=== PATIENT | female | born 1945 | race Caucasian/White ===

== ENCOUNTER → 2018-11-02 | Outpatient (CLI) | payer MEDICARE, OTHER ==
--- NOTE | 2018-11-02 14:58 | KCIC ---
MR of the left knee HISTORY: Left knee pain since end of September, pain medially. Swelling. TECHNIQUE: Routine multiplanar sequences are obtained. FINDINGS: There is a degenerative tear of the medial meniscus. No evidence of a lateral meniscal tear. Anterior and posterior cruciate ligaments are intact. Mild medial collateral ligament sprain. Iliotibial band unremarkable. Fibular collateral ligament, biceps femoris tendon and popliteus tendon are intact. The extensor mechanism is intact. Small joint effusion. Severe chondromalacia of the patella with subjacent cystic change/edema. Moderate femoral trochlear chondromalacia. Severe chondromalacia at the medial joint compartment. Mild chondromalacia at the lateral joint. No acute fracture or aggressive bone destruction. Small García's cyst. IMPRESSION: 1. Medial meniscal tear. 2. Primary osteoporosis. Electronically signed by: Geovani Pickard MD (11/02/2018 2:55 PM) [facility]
== END | disposition home or self-care (01) ==
LOC: KCIC MRI 13:44
PROVIDERS: ATTEND Nurse Practitioner Family
DX: S83.412A Sprain of medial collateral ligament of left knee, initial encounter (principal); S83.242A Other tear of medial meniscus, current injury, left knee, initial encounter; M25.462 Effusion, left knee; M22.42 Chondromalacia patellae, left knee; M71.22 Synovial cyst of popliteal space [Baker], left knee; X58.XXXA Exposure to other specified factors, initial encounter; Y93.89 Activity, other specified; Y92.89 Other specified places as the place of occurrence of the external cause; Y99.8 Other external cause status
CPT/HCPCS: 73721

== ENCOUNTER 2020-02-08 11:18 | Emergency (ER) | payer MEDICARE, OTHER ==
[~2020-02-08] VITALS: Ht 162.6 cm; Wt 76.0 kg
[2020-02-08] MEDS ORDERED: FAMOTIDINE 20 MG/2 ML VIAL IVP ONE (11:30)
[2020-02-08] MEDS ORDERED: ONDANSETRON PF 4 MG/2 ML VIAL. IVP ONE (11:30)
[2020-02-08] MEDS ORDERED: IV NORMAL SALINE 1000ML BAG 1,000 ML IV ONE (11:30)
--- NOTE | 2020-02-08 11:40 | PHYS DOC ---
General Adult EDM: Chief Complaint: SYNCOPE HPI: HPI: Patient is a 74-year-old female brought to the ED by EMS due to syncope. Patient was at a outdoor in hot weather and she started feeling lightheaded, nauseous, weak. She briefly "passed out" and has been vomiting intermittently. Ate a small male this morning and no liquids except for coffee. Patient has no known drug allergies. Patient takes fish oil, co-Q10, vitamin B12, vitamin E, and an antidepressant was recently changed 2 days ago. He is unaware of the new antidepressants name. Patient denies fever, chills, cough or shortness of breath. Patient denies any COVID contacts. Review of Systems: Review of Systems: Constitutional: Denies fever or chills Eyes: Denies redness or eye pain HENT: Denies nasal congestion or sore throat Respiratory: Denies cough or shortness of breath Cardiovascular: Denies chest pain or palpitations GI: Denies abdominal pain, endorses nausea and vomiting : Denies dysuria or hematuria Musculoskeletal: Denies back pain or joint pain Integument: Denies rash or skin lesions Neurologic: Denies headache, focal weakness or sensory changes Complete systems were reviewed and found to be within normal limits, except as documented in this note. Current Medications: Current Medications Medications (Trade) Dose Ordered Sig/Katia Start Time Stop Time Status Last Admin Dose Admin Famotidine (Pepcid Vial) 20 mg 1X ONCE 02/08/20 11:30 02/08/20 11:31 DC Ondansetron HCl (Zofran) 4 mg 1X ONCE 02/08/20 11:30 02/08/20 11:31 DC Sodium Chloride 1,000 ml @ 1,000 mls/hr 1X ONCE 02/08/20 11:30 02/08/20 12:29 Allergies: Allergies: Allergies Coded Allergies Type Severity Reaction Last Updated Verified Sulfa (Sulfonamide Antibiotics) Allergy Intermediate 11/24/15 No Physical Exam: PE: Constitutional: Well developed, well nourished, no acute distress, non-toxic appearance HENT: Normocephalic, atraumatic Eyes: PERRL, EOMI, conjunctiva normal, no discharge Neck: Normal range of motion, no tenderness, supple Lungs & Thorax: Bilateral breath sounds clear to auscultation, no wheezing Abdomen: Soft, no tenderness Skin: Warm, dry, no erythema, no rash Back: No tenderness, no CVA tenderness Extremities: No tenderness, ROM intact, no edema Neurologic: Alert and oriented X 3, normal motor function, normal sensory function, no focal deficits noted Psychologic: Affect normal, judgment normal EKG: EK02/08/2020 at 1127 hours heart rate is 73 bpm, normal sinus rhythm, QRS 90 ms, QT/QTc 422/469 ms, 2 PVCs, incomplete right bundle branch block Radiology/Procedures: Radiology/Procedures: PROCEDURE: PORTABLE CHEST 1V PORTABLE CHEST 1V 02/08/2020 11:21 AM INDICATION: Syncope COMPARISON: None available TECHNIQUE: Portable frontal view of the chest is provided. FINDINGS: The cardiomediastinal silhouette is within normal limits. Lungs are clear. There are no significant pleural effusions. There is no pulmonary vascular congestion. No pneumothorax. No suspicious osseous abnormality. IMPRESSION: There is no acute cardiopulmonary process. Electronically signed by: Amanda Farr MD (02/08/2020 11:48 AM) [facility] Course & Med Decision Making: Course & Med Decision Making Pertinent Labs and Imaging studies reviewed. (See chart for details) Patient is a 74-year-old female presenting to the ED by EMS for a syncopal episode she had at a outdoor . Patient reports no fall or head trauma which is concurrent with physical exam. Patient described not eating or drinking much this morning and states that it was very hot outside. Patient was most likely dehydrated which led to her syncopal episode. Laboratory hematology is unremarkable. Chest x-ray shows no acute process. Patient was given ondansetron and famotidine for nausea. Patient stable for discharge with outpatient follow-up with PCP. Discussed findings and plan with patient, who acknowledges understanding and agreement. Dragon Disclaimer: Dragon Disclaimer: This electronic medical record was generated, in whole or in part, using a voice recognition dictation system. Departure Departure Impression: Primary Impression: Syncope Qualified Codes: R55 - Syncope and collapse Disposition: 01 HOME, SELF-CARE Condition: IMPROVED Referrals: GABRIELLA TRAMMELL APRN (PCP) Patient Instructions: Dehydration, Adult, [id number], Syncope, [id number] Justicifation of Admission Dx: Justifications for Admission: Justification of Admission Dx: N/A TENZIN GILBERT DO Feb 08, 2020 11:39
[2020-02-08 11:48] LABS: BASO # 0.1 x10^3/uL (0.0-0.2); BASO % 1 % (0-3); EOS # 0.1 x10^3/uL (0.0-0.7); EOS % 1 % (0-3); HEMATOCRIT 37.7 % (36.0-47.0); HEMOGLOBIN 12.9 g/dL (12.0-15.5); LYMPH # 3.2 x10^3/uL (1.0-4.8); LYMPH % 37 % (24-48); MEAN CORPUSCULAR HEMOGLOBIN 31 pg (25-35); MEAN CORPUSCULAR HGB CONC 34 g/dL (31-37); MEAN CORPUSCULAR VOLUME 89 fL (79-100); MONO # 0.7 x10^3/uL (0.0-1.1); MONO % 8 % (0-9); NEUT # 4.8 x10^3/uL (1.8-7.7); NEUT % 54 % (31-73); PLATELET COUNT 215 x10^3/uL (140-400); RED BLOOD COUNT 4.22 x10^6/uL (3.50-5.40); RED CELL DISTRIBUTION WIDTH 12.8 % (11.5-14.5); WHITE BLOOD COUNT 8.8 x10^3/uL (4.0-11.0)
--- NOTE | 2020-02-08 11:51 | RAD ---
PORTABLE CHEST 1V 02/08/2020 11:21 AM INDICATION: Syncope COMPARISON: None available TECHNIQUE: Portable frontal view of the chest is provided. FINDINGS: The cardiomediastinal silhouette is within normal limits. Lungs are clear. There are no significant pleural effusions. There is no pulmonary vascular congestion. No pneumothorax. No suspicious osseous abnormality. IMPRESSION: There is no acute cardiopulmonary process. Electronically signed by: Amanda Farr MD (02/08/2020 11:48 AM) [facility]
[2020-02-08 12:18] LABS: CALCIUM 9.3 mg/dL (8.5-10.1); CREATININE 1.1 mg/dL (0.6-1.0); GFR 48.8; POTASSIUM 3.9 mmol/L (3.5-5.1)
[2020-02-08 12:23] LABS: ALBUMIN/GLOBULIN RATIO 1.1 (1.0-1.7); MAGNESIUM 2.2 mg/dL (1.8-2.4); TOTAL BILIRUBIN 0.5 mg/dL (0.2-1.0); TOTAL PROTEIN 7.5 g/dL (6.4-8.2)
--- NOTE | 2020-02-08 12:28 | RAD ---
CT HEAD WO CONTRAST History: Reason: syncope / Spl. Instructions: / History: Comparison: None. Technique: Noncontrast CT imaging was performed of the head. Exposure: One or more of the following individualized dose reduction techniques were utilized for this examination: 1. Automated exposure control 2. Adjustment of the mA and/or kV according to patient size 3. Use of iterative reconstruction technique. Findings: No intracranial hemorrhage. No mass effect. No hydrocephalus. Mild brain parenchymal volume loss. Mild foci of decreased attenuation within the hemispheric white matter, within normal range for age. Imaged orbits are unremarkable. Imaged paranasal sinuses and mastoid air cells are clear. No acute calvarial fracture. Impression: 1. No acute intracranial abnormality. Electronically signed by: Keith Quinonez DO (02/08/2020 12:25 PM) [facility]
[2020-02-08 14:02] LABS: BILIRUBIN,URINE NEGATIVE (NEG); CLARITY,URINE CLEAR; COLOR,URINE YELLOW; NITRITE,URINE NEGATIVE (NEG); PROTEIN,URINE NEGATIVE (NEG-TRACE); UROBILINOGEN,URINE 0.2 mg/dL (0.2 mg/dL)
[2020-02-08 14:13] LABS: BACTERIA,URINE 0 /HPF (0-FEW); RBC,URINE 0 /HPF (0-2); WBC,URINE 0 /HPF (0-4)
[2020-02-08 14:14] LABS: HYALINE CASTS, URINE MODERATE /HPF; SQUAMOUS EPITHELIAL CELL,UR FEW /LPF
[2020-02-08 14:47] VITALS: BP 115/54
== END 2020-02-08 15:19 | disposition home or self-care (01) ==
LOC: ER 11:18
DX: R55 Syncope and collapse (principal); R42 Dizziness and giddiness; R11.2 Nausea with vomiting, unspecified; Z88.2 Allergy status to sulfonamides
CPT/HCPCS: 36415; 70450; 71045; 80053; 81001; 82553; 83735; 84484; 85025; 96361; 96374; 96375; 99285; J2405; J3490; J7030

== ENCOUNTER → 2021-09-21 | Outpatient (CLI) | payer MEDICARE, OTHER ==
--- NOTE | 2021-09-22 08:10 | KCIC ---
EXAM: MRI LEFT KNEE DATE: 09/21/2021 12:45 PM CLINICAL INDICATION: Reason: LEFT AND RIGHT KNEE PAIN / Spl. Instructions: / History: Chronic medial ,bilateral knee pain. COMPARISON: None. TECHNIQUE: Multiplanar, multisequence MRI of the LEFT knee was performed without contrast. FINDINGS: No knee joint effusion. Small García's cyst. The ACL and PCL are intact. MCL, fibular collateral ligament, biceps femoris and IT band are intact. Popliteus is intact, normal in signal and morphology. Extensor mechanism is intact. Neutral patellar tracking. Trace suprapatellar fat pad edema may be see n with anterior knee pain/impingement. Medial meniscus: Diffuse blunting of the body segment medial meniscus consistent with radial tear. Lateral meniscus: Intact Edema and cystic change at the medial aspect of the medial tibial plateau and medial femoral condyle with overlying chondral effacement. Chondral thinning patellar apex. Small tricompartmental osteophyt es are seen. IMPRESSION: 1. Left knee joint osteoarthritis, medial compartment predominant. 2. Radial tear body segment medial meniscus. 3. Trace suprapatellar fat pad edema may be seen with anterior knee pain/impingement. 4. Small García's cyst. EXAM: MRI RIGHT KNEE DATE: 09/21/2021 12:45 PM CLINICAL INDICATION: Reason: LEFT AND RIGHT KNEE PAIN / Spl. Instructions: / History: Chronic medial ,bilateral knee pain. COMPARISON: None. TECHNIQUE: Multiplanar, multisequence MRI of the RIGHT knee was performed without contrast. FINDINGS: The ACL and PCL are intact. The MCL, fibular collateral ligament, biceps femoris and IT band are inta ct. Popliteus is intact, normal in signal and morphology. Extensor mechanism is intact. Neutral patellar tracking. Small knee joint effusion. Small García's cys t. Medial meniscus: There is deformity and irregularity of the posterior horn free edge as well as diffu se blunting of the body segment consistent with radial tear. Lateral meniscus: Intact No acute fracture or osteonecrosis. Chondral effacement medial compartment with subchondral edema and cystic change. Chondral thinning an d fissuring medial patellar facet with subchondral cystic change. IMPRESSION: 1. Right knee joint osteoarthritis, medial compartment predominance 2. Radial tear body-posterior horn medial meniscus Electronically signed by: Dante Stewart MD (09/22/2021 8:07 AM) [id number]
== END ==
LOC: KCIC MRI 12:35
PROVIDERS: ATTEND Nurse Practitioner Family
DX: S83.242A Other tear of medial meniscus, current injury, left knee, initial encounter (principal); M17.12 Unilateral primary osteoarthritis, left knee; M25.762 Osteophyte, left knee; M25.761 Osteophyte, right knee; M71.22 Synovial cyst of popliteal space [Baker], left knee; M71.21 Synovial cyst of popliteal space [Baker], right knee; X58.XXXA Exposure to other specified factors, initial encounter; Y93.89 Activity, other specified; Y92.89 Other specified places as the place of occurrence of the external cause; Y99.8 Other external cause status
CPT/HCPCS: 73721-50